=== PATIENT | female | born 1975 | race Caucasian/White ===

== ENCOUNTER 2020-03-27 17:21 | Inpatient (IN) ==
[2020-03-27] MEDS ORDERED: Naloxone 0.4 MG/ML INJ IVP PRN (21:08)
[2020-03-27] MEDS ORDERED: Lidocaine 1% 20 ML MDV INFILT PRN (21:08)
[2020-03-27] MEDS ORDERED: *HR* Nalbuphine 10 MG/ML AMPUL IV PRN (21:08)
[2020-03-27] MEDS ORDERED: Metoclopramide 10 MG/2 ML VIAL IVP PRN (21:08)
[2020-03-27] MEDS ORDERED: Famotidine 20 MG/2 ML VIAL IVP PRN (21:08)
[2020-03-27] MEDS ORDERED: Ondansetron 4 MG/2 ML VIAL IVP PRN (21:08)
[2020-03-27] MEDS ORDERED: Oxytocin 20 units/ LR 1000 mL 20 UNIT/1,000 ML BAG IVC SCH (21:15)
[2020-03-27] MEDS ORDERED: Ringers Solution, Lactated 1,000 ML IVC SCH (21:15)
[2020-03-27] MEDS ORDERED: Oxytocin 20 units/ LR 1000 mL 20 UNIT/1,000 ML BAG IVC ONE (21:27)
[2020-03-27] MEDS ORDERED: Ringers Solution, Lactated 1,000 ML ONE (21:27)
[2020-03-27] MEDS ORDERED: levETIRAcetam 250 MG TABLET PO SCH (22:19)
[2020-03-27 22:25] LABS: Basophils # 0.1 K/mcL (0.0-0.2); Basophils % 0.7 %; Eosinophils # 0.1 K/mcL (0.0-0.6); Hematocrit 33.6 % (35.3-44.9); Hemoglobin 11.4 g/dL (11.5-15.4); Immature Granulocytes % 1.7 % (0-4); Lymphocytes # 2.6 K/mcL (0.6-4.6); Lymphocytes % 21.6 %; Mean Corpuscular HGB Conc 33.9 g/dL (31.6-35.5); Mean Corpuscular Hemoglobin 30.7 pg (28.0-33.3); Mean Corpuscular Volume 90.6 fL (83.0-100.0); Mean Platelet Volume 10.7 fL (9.4-12.4); Monocytes # 0.9 K/mcL (0.0-1.3); Monocytes % 7.6 %; Neutrophils # 8.1 K/mcL (1.6-8.9); Platelet Count 262 K/mcL (140-400); Red Blood Count 3.71 M/mcL (3.82-4.97); Red Cell Distribution Width 12.9 % (11.5-14.5); Segmented Neutrophils % 67.4 %
[2020-03-27 22:33] LABS: Prothrombin Time 11.1 Seconds (9.4-12.1)
[2020-03-27 22:35] LABS: Activated Partial Thrombo Time 25.9 Seconds (26.0-36.0)
[2020-03-27 22:41] LABS: Amphetamine Screen,Urine Negative ng/mL (Cutoff=1000); Barbiturate Screen,Urine Negative ng/mL (Cutoff=200); Benzodiazepines Screen,Urine Negative ng/mL (Cutoff=200); Cannabinoid Screen,Urine Negative ng/mL (Cutoff = 50); Cocaine Screen,Urine Negative ng/mL (Cutoff= 300); Opiate Screen,Urine Negative ng/mL (Cutoff=300); Phencyclidine Screen,Urine Negative ng/mL (Cutoff=25)
[2020-03-27 22:44] LABS: Alanine Aminotransferase 10 Units/L (7-52); Aspartate Amino Transferase 13 Units/L (13-39); BUN/Creatinine Ratio 16 (6-26); Blood Urea Nitrogen 6 mg/dL (6-20); Lactate Dehydrogenase 109 Units/L (140-271); Uric Acid 2.5 mg/dL (2.3-7.6); eGFR For African Americans > 60 (> 60); eGFR For Non-African Americans > 60 (> 60)
[2020-03-27 22:54] LABS: Creatinine,Urine 47 mg/dL
[2020-03-28] MEDS ORDERED: carBAMazepine 200 MG TABLET PO SCH ×3 (02:00→12:00)
[2020-03-28] MEDS ORDERED: levETIRAcetam 250 MG TABLET PO SCH (06:00)
[2020-03-28] MEDS ORDERED: Rho Immune Globulin 1,500 UNIT SYRINGE IM PRN (08:16)
[2020-03-28] MEDS ORDERED: Acetaminophen 325 MG TABLET PO PRN (08:16)
[2020-03-28] MEDS ORDERED: Measles/Mumps/Rubella Vacc 0.5 ML VIAL SQ PRN (08:16)
[2020-03-28] MEDS ORDERED: Oxytocin 20 units/ LR 1000 mL 20 UNIT/1,000 ML BAG IVC SCH (08:16)
[2020-03-28] MEDS ORDERED: Ibuprofen 600 MG TABLET PO PRN (08:16)
[2020-03-28] MEDS ORDERED: FOLIC ACID PO SCH (09:00)
[2020-03-28] MEDS ORDERED: IRON PO SCH (09:00)
[2020-03-28] MEDS ORDERED: PRENATAL PO SCH (09:00)
[2020-03-28] MEDS: Loratadine 10 MG TABLET PO SCH (10:30)
[2020-03-28] MEDS: Prenatal Vit/FA 1 EACH TABLET PO SCH (10:30)
[2020-03-28] MEDS: levETIRAcetam 250 MG TABLET PO SCH (10:31)
[2020-03-28] MEDS: Benzocaine/Menthol 56 GM AEROSOL SPRAY TP PRN (14:35)
[2020-03-28] MEDS: carBAMazepine 200 MG TABLET PO SCH ×2 (16:09→23:58)
[2020-03-29 04:52] LABS: Basophils % 0.3 %; Eosinophils # 0.2 K/mcL (0.0-0.6); Eosinophils % 1.5 %; Hematocrit 30.2 % (35.3-44.9); Hemoglobin 10.1 g/dL (11.5-15.4); Immature Granulocytes % 1.2 % (0-4); Lymphocytes % 21.6 %; Mean Corpuscular HGB Conc 33.4 g/dL (31.6-35.5); Mean Corpuscular Hemoglobin 30.9 pg (28.0-33.3); Mean Corpuscular Volume 92.4 fL (83.0-100.0); Mean Platelet Volume 10.5 fL (9.4-12.4); Monocytes % 7.5 %; Neutrophils # 9.3 K/mcL (1.6-8.9); Platelet Count 241 K/mcL (140-400); Red Blood Count 3.27 M/mcL (3.82-4.97); Red Cell Distribution Width 12.9 % (11.5-14.5); Segmented Neutrophils % 67.9 %; White Blood Count 13.7 K/mcL (4.3-11.1)
[2020-03-29 07:37] VITALS: BP 119/77
[2020-03-29] MEDS: Prenatal Vit/FA 1 EACH TABLET PO SCH (08:20)
[2020-03-29] MEDS: carBAMazepine 200 MG TABLET PO SCH (08:21)
[2020-03-29] MEDS: Loratadine 10 MG TABLET PO SCH (08:21)
[2020-03-29] MEDS: levETIRAcetam 250 MG TABLET PO SCH (08:40)
[2020-03-29] MEDS: Benzocaine/Menthol 56 GM AEROSOL SPRAY TP PRN (12:06)
== END 2020-03-29 14:21 | disposition home or self-care (01) ==
LOC: 1NENULAB → 1NENUOBS 03-28 08:12
PROVIDERS: ADMIT Student in an Organized Health Care Education/Training Program; ATTEND Student in an Organized Health Care Education/Training Program